=== PATIENT | male | born 1940 | race Caucasian/White ===

== ENCOUNTER 2019-07-10 17:43 | Observation (INO) ==
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
[2019-07-10 18:38] LABS: BASO# 0.03 X1000 (0.0-0.2); BASO% 0.3 % (0.0-0.8); EOS# 0.22 X1000 (0.0-0.7); EOS% 1.9 % (0.0-10.0); HEMATOCRIT 47.6 % (42.0-52.0); HEMOGLOBIN 16.1 g/dL (14.0-18.0); IMM GRAN# 0.06 X1000 (0.0-0.04); IMM GRAN% 0.5 % (0.0-0.5); LYMPH% 12.8 % (20.5-51.1); MCH 31.9 PG (27-31); MCHC 33.8 g/dL (33-37); MCV 94.4 FL (81-99); MONO# 1.08 X1000 (0.11-0.59); MONO% 9.2 % (1.7-9.3); MPV 10.2 FL (7.4-10.4); NEUT# 8.87 X1000 (1.4-6.5); NEUT% 75.3 % (42.2-75.2); PLT 290 X1000 (130-400); RBC 5.04 XMIL (4.7-6.1); WBC 11.76 X1000 (4.8-10.8)
[2019-07-10 18:51] LABS: AGAP 14; ALBUMIN 4.6 g/dL (3.5-5.0); ALKALINE PHOSPHATASE 81 U/L (32-122); BUN 17 mg/dL (8-22); CALCIUM 9.1 mg/dL (8.8-10.2); CHLORIDE 97 mmol/L (98-107); COSMO 277; CREATININE 1.1 mg/dL (0.7-1.2); ESTIMATED GFR > 60; GLUCOSE 101 mg/dL (70-104); GOT 31 U/L (10-34); GPT 17 U/L (10-44); POTASSIUM 3.7 mmol/L (3.5-5.1); SODIUM 138 mmol/L (136-145); TCO2 28 mmol/L (25-35); TOTAL PROTEIN 8.8 g/dL (6.3-8.3)
[2019-07-10] MEDS ORDERED: ZOFRAN IV ONE (19:28)
[2019-07-10] MEDS ORDERED: MORPHINE IV ONE ×2 (19:28→19:29)
[2019-07-10] MEDS ORDERED: DILAUDID IV ONE (19:31)
[2019-07-10 20:08] LABS: INR 0.87; PROTIME 12.3 Seconds (11.0-16.0)
[2019-07-10 20:09] LABS: PTT 26.4 Seconds (22.3-41.8)
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
[2019-07-10 21:09] LABS: URINE SOURCE CLEAN CATCH
[2019-07-10 21:11] LABS: BILIRUBIN URINE NEGATIVE (NEGATIVE); BLOOD URINE MODERATE (NEGATIVE); COLOR YELLOW; GLUCOSE URINE NEGATIVE (NEGATIVE); KETONE URINE NEGATIVE (NEGATIVE); LEUKOCYTES URINE NEGATIVE (NEGATIVE); NITRITE URINE NEGATIVE (NEGATIVE); PROTEIN URINE 50 mg/dL (NEGATIVE); SP GRAVITY URINE 1.029; TURBIDITY URINE CLEAR (CLEAR); UROBILINOGEN URINE NORMAL (NORMAL)
[2019-07-10 21:13] LABS: UR EPITHELIAL CELLS <10 /HPF (<10); URINE BACTERIA NEGATIVE /HPF; URINE WBC <10 /HPF (<10)
[2019-07-10 21:18] LABS: BE 1.4 mmoll (-3.0-3.0); BLOOD TYPE ARTERIAL; HCO3-(ACT) 25.9 mmoll (20.0-26.0); METHB 1.5 % (0.0-1.5); O2(CT) 19.8 mL/dL (15.0-23.0); O2HB 93.4 % (95.0-99.0); PCO2(98.6) 46 mmHg (35-45); PO2(98.6) 76 mmHg (60-100); SAMPLE BLOOD; SAO2 97.2 % (95.0-100.0); THB 15.1 g/dL (11.5-17.4); pH(98.6) 7.38 (7.35-7.45)
[2019-07-10 21:19] LABS: MODALITY CANNULA
[2019-07-10 21:20] LABS: ALLEN TEST NO
[2019-07-10] MEDS ORDERED: ZOFRAN IV PRN (21:29)
[2019-07-10] MEDS ORDERED: DILAUDID IM PRN (21:29)
[2019-07-10] MEDS ORDERED: NS 1,000 ML IV ONE ×2 (21:29→22:18)
[2019-07-11] MEDS: HUMALOG (PARKWAY) SUBQ SCH ×2 (06:09→11:10)
[2019-07-11] MEDS ORDERED: DILAUDID IM PRN (06:14)
[2019-07-11 07:37] VITALS: BP 108/54
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
--- NOTE | 2019-07-11 20:28 | DISCHARGE SUMMARY ---
ADMISSION DATE: 07/10/2019 DISCHARGE DATE: 07/11/2019 Patient presented to the hospital on 07/10/2019 with possibly low oxygen level in the ER. Thankfully, this did not continue. Certainly expect that his hypoxemia was probably more due to the pain medication that he received in the ER than to anything else. His O2 saturations have been stable. He does have a history of diabetes, high cholesterol, chronic pain. He is on Xarelto, although it appears as though these prescriptions may be old and not current. Regardless, he was admitted to the hospital, followed overnight. Thankfully, he had no further complications. Family notes that he is back to his baseline. His O2 saturations have been stable and therefore we will discharge home. cc: Alvaro Murphy MD
== END 2019-07-11 15:42 | disposition home or self-care (01) ==
LOC: P.MEDSURG 17:43 → P.ED 17:43
PROVIDERS: ATTEND Family Medicine